=== PATIENT | female | born 2000 | race Caucasian/White ===

== ENCOUNTER 2022-01-17 09:23 | Day surgery (SDC) | payer OTHER, MEDICAID ==
[~2022-01-17] VITALS: Ht 147.3 cm; Wt 51.3 kg
[~2022-01-17 09:23] MED LIST: LIDOCAINE 1% MDV 20ML VIAL SQ PRN; LR 1,000 ML IV ONE; XULA1DIS TD; ceFAZolin SOD 2 GM in IV 1 EA IV ONE
[2022-01-17] MEDS ORDERED: LEVONORGESTREL 52MG (MIRENA) IUD As Ordered ONE (10:17)
[2022-01-17 10:39] LABS: HCG, SERUM QUALITATIVE NEGATIVE (NEGATIVE)
[2022-01-17] MEDS ORDERED: propofoL 200 MG/20 ML VIAL As Ordered ONE (11:00)
[2022-01-17] MEDS ORDERED: MIDAZOLAM INJ 2MG/2ML VIAL (J2250 PER 1MG) As Ordered ONE (11:00)
[2022-01-17] MEDS ORDERED: fentaNYL 100 MCG/2 ML INJECTION As Ordered ONE (11:00)
[2022-01-17] MEDS ORDERED: LIDOCAINE 1% SDV 30ML VIAL As Ordered ONE (11:14)
[2022-01-17] MEDS ORDERED: SILVER NITRATE APPLICATOR As Ordered ONE (11:21)
[2022-01-17] MEDS ORDERED: ePHEDrine SULFATE 25 MG/5 ML(5MG/ML) SYRINGE As Ordered ONE (11:28)
[2022-01-17] MEDS ORDERED: KETOROLAC 30 MG/ML 1ML VIAL IV ONE (11:50)
[2022-01-17 12:05] VITALS: BP 123/78
== END 2022-01-17 12:16 | disposition home or self-care (01) ==
LOC: M SDC 09:23
PROVIDERS: ATTEND Obstetrics & Gynecology
DX: N93.9 Abnormal uterine and vaginal bleeding, unspecified (principal); Z30.430 Encounter for insertion of intrauterine contraceptive device; F84.2 Rett's syndrome; G40.909 Epilepsy, unspecified, not intractable, without status epilepticus; Z79.899 Other long term (current) drug therapy; Z88.0 Allergy status to penicillin
CPT/HCPCS: 36415; 58300; 84703; 86850; 86900; 86901; J1885; J2250; J3010; J7298

== ENCOUNTER 2022-03-23 10:30 | Outpatient (RCR) | payer OTHER, MEDICAID ==
[~2022-03-23 10:30] MED LIST changes: -LIDOCAINE 1% MDV 20ML VIAL SQ PRN; -LR 1,000 ML IV ONE; -ceFAZolin SOD 2 GM in IV 1 EA IV ONE
== END 2022-03-27 ==
LOC: M ST 10:30
PROVIDERS: ATTEND Family Medicine
DX: F84.2 Rett's syndrome (principal)

== ENCOUNTER 2022-04-24 11:30 | Outpatient (RCR) | payer OTHER, MEDICAID | END 2022-04-26 | LOC: M OT 11:30 | PROVIDERS: ATTEND Family Medicine | DX: F84.2 Rett's syndrome (principal) ==

== ENCOUNTER 2022-05-09 13:15 | Outpatient (RCR) | payer OTHER, MEDICAID | END 2022-05-27 | LOC: M OT 13:15 | PROVIDERS: ATTEND Family Medicine | DX: F84.2 Rett's syndrome (principal); R41.840 Attention and concentration deficit ==

== ENCOUNTER → 2022-06-27 | Outpatient (RCR) | payer OTHER, MEDICAID | LOC: M ST 06-13 13:49 → M OT 06-13 13:50 → M ST 06-19 12:39 → M OT 09:00 → M ST 09:05 | PROVIDERS: ATTEND Family Medicine | DX: F84.2 Rett's syndrome (principal); R41.840 Attention and concentration deficit ==

== ENCOUNTER 2022-07-06 09:34 | Outpatient (RCR) | payer OTHER, MEDICAID | END 2022-07-27 | LOC: M OT 09:34 | PROVIDERS: ATTEND Family Medicine | DX: F84.2 Rett's syndrome (principal); R41.840 Attention and concentration deficit ==

== ENCOUNTER 2022-08-23 10:53 | Outpatient (RCR) | payer OTHER, MEDICAID | END 2022-08-27 | LOC: M OT 10:53 | PROVIDERS: ATTEND Family Medicine | DX: F84.2 Rett's syndrome (principal) ==

== ENCOUNTER 2022-08-30 09:44 | Outpatient (RCR) | payer OTHER, MEDICAID | END 2022-09-26 | LOC: M OT 09:44 | PROVIDERS: ATTEND Family Medicine | DX: F84.2 Rett's syndrome (principal) ==

== ENCOUNTER 2024-02-11 07:01 | Day surgery (SDC) | payer OTHER, MEDICAID ==
[~2024-02-11] VITALS: Ht 152.4 cm; Wt 63.2 kg
[2024-02-11] MEDS ORDERED: OXYMETAZOLINE 0.05% NASAL SPRAY (AFRIN) As Ordered ONE (07:20)
[2024-02-11] MEDS ORDERED: LIDOCAINE 2% 100MG/5ML SDV (FOR ANES.) As Ordered ONE (07:21)
[2024-02-11] MEDS ORDERED: fentaNYL 100 MCG/2 ML INJECTION As Ordered ONE (07:21)
[2024-02-11] MEDS ORDERED: ONDANSETRON 4MG 2ML VIAL As Ordered ONE (07:21)
[2024-02-11] MEDS ORDERED: ROCURONIUM BROMIDE 50MG/5ML VIAL As Ordered ONE (07:21)
[2024-02-11] MEDS ORDERED: propofoL 200 MG/20 ML VIAL As Ordered ONE (07:21)
[2024-02-11] MEDS ORDERED: ACETAMINOPHEN 1000MG 100ML IV BAG As Ordered ONE (07:22)
[2024-02-11] MEDS ORDERED: dexmedeTOMIDine (4MCG/ML)200MCG/50ML BTL (PRECEDEX) As Ordered ONE (07:23)
[2024-02-11] MEDS: MIDAZOLAM 10MG/5ML SYRUP PO ONE (07:25)
[2024-02-11] MEDS ORDERED: EMLA CREAM 5GM TUBE (LIDOCAINE/PRILOCAINE) TOP PRN (07:25)
[2024-02-11] MEDS ORDERED: LR 1,000 ML IV SCH ×2 (07:25→11:10)
[2024-02-11] MEDS ORDERED: SUGAMMADEX SODIUM 500 MG/5 ML VIAL (BRIDION) As Ordered ONE (08:55)
[2024-02-11] MEDS: LIDOCAINE 2% W/ EPINEPHRINE 1.7 ML DENTAL INJ As Ordered ONE (10:35)
[2024-02-11] MEDS ORDERED: fentaNYL 100 MCG/2 ML INJECTION IV PRN (11:10)
[2024-02-11] MEDS ORDERED: ONDANSETRON 4MG 2ML VIAL IV PRN (11:10)
[2024-02-11] MEDS ORDERED: oxyCODONE 5MG TAB PO PRN (11:10)
[2024-02-11] MEDS ORDERED: METOCLOPRAMIDE INJ 10MG/2ML VIAL IV PRN (11:10)
[2024-02-11 12:34] VITALS: BP 130/69; TEMP 98.1; O2SAT 97
== END 2024-02-11 12:36 | disposition home or self-care (01) ==
LOC: M SDC 07:01
PROVIDERS: ATTEND Student in an Organized Health Care Education/Training Program
DX: K02.9 Dental caries, unspecified (principal); Z88.0 Allergy status to penicillin; Z88.8 Allergy status to other drugs, medicaments and biological substances; F84.0 Autistic disorder; G40.909 Epilepsy, unspecified, not intractable, without status epilepticus; Z79.899 Other long term (current) drug therapy
CPT/HCPCS: 41899; 70310; 88300; J0131; J1100; J2405; J3010